=== PATIENT | female | born 1995 | race African-American/Black ===

== ENCOUNTER 2019-02-12 12:24 | Inpatient (IN) | payer MEDICAID ==
[~2019-02-12] VITALS: Ht 170.2 cm; Wt 68.5 kg
[2019-02-12] MEDS ORDERED: MISOPROSTOL 100MCG TABLET VG SCH (12:45)
[2019-02-12] MEDS ORDERED: METHYLERGONOVINE MALEATE 0.2 MG/ML IM PRN ×2 (12:45→13:00)
[2019-02-12] MEDS ORDERED: CARBOPROST TROMETHAMINE 250 MCG/ML AMPUL IM PRN (12:45)
[2019-02-12] MEDS ORDERED: NALOXONE HCL 0.4 MG/ML 1ML VIAL IM PRN (12:45)
[2019-02-12] MEDS ORDERED: DEXT 5%/LR + PITOCIN 20UNITS/L 1,000 ML IV SCH ×2 (13:00)
[2019-02-12] MEDS ORDERED: LACTATED RINGERS 1,000 ML IV SCH (13:00)
[2019-02-12] MEDS ORDERED: IBUPROFEN 800MG TABLET PO ONE (13:00)
[2019-02-12] MEDS ORDERED: RHO(D) IMMUNE GLOBULIN 300 MCG/SYR IM PRN (13:00)
[2019-02-12] MEDS ORDERED: LANOLIN OINT 0.25 GM TUBE TOP PRN (13:00)
[2019-02-12 15:00] VITALS: BP 115/83
[2019-02-12 15:30] VITALS: BP 112/65
[2019-02-12 16:26] LABS: INR 0.9; PARTIAL THROMBOPLASTIN TIME 26.8 sec (23.4-31.0); PROTHROMBIN TIME 9.1 sec (9.6-11.0)
[2019-02-12 16:30] LABS: BASOPHILS % 0.5 % (0.0-2.0); EOSINOPHILS % 0.3 % (0.0-5.0); HEMATOCRIT. 30.9 % (36.0-48.0); HEMOGLOBIN. 9.5 g/dL (12.0-16.0); LYMPHOCYTES % 22.1 % (20.0-50.0); MEAN CORPUSCULAR VOLUME 74.7 fL (81.0-99.0); MONOCYTES % 6.1 % (2.0-8.0); PLATELET 240 x1000/uL (130-400); RED BLOOD CELL COUNT 4.14 mill/uL (4.2-5.4); RED CELL DISTRIBUTION WIDTH 15.3 % (11.6-14.6)
[2019-02-12 17:01] LABS: HEPATITIS B SURFACE ANTIGEN NEGATIVE
[2019-02-12] MEDS: IBUPROFEN 400MG TABLET PO PRN (17:38)
[2019-02-12 20:00] VITALS: BP 98/61
[2019-02-12] MEDS: IBUPROFEN 800MG TABLET PO PRN (21:00)
[2019-02-12 21:27] LABS: CLARITY URINE CLEAR (CLEAR); COLOR URINE YELLOW (YELLOW); KETONES URINE NEGATIVE (NEGATIVE); LEUKOCYTE ESTERASE URINE NEGATIVE (NEGATIVE); NITRITE URINE NEGATIVE (NEGATIVE); OCCULT BLOOD URINE NEGATIVE (NEGATIVE); PH URINE 7.5 (4.5-8.0); PROTEIN URINE NEGATIVE (NEGATIVE); UROBILINOGEN URINE 0.2 E.U./dL (0.2-1.0)
[2019-02-12 21:37] LABS: *BARBITURATES SCREEN URINE NEGATIVE (NEGATIVE)
[2019-02-12 21:38] LABS: *BENZODIAZEPINES SCREEN URINE NEGATIVE (NEGATIVE); *COCAINE SCREEN URINE NEGATIVE (NEGATIVE); METHADONE URINE SCREEN NEGATIVE (NEGATIVE); OPIATES URINE SCREEN NEGATIVE (NEGATIVE); PHENCYCLIDINE URINE SCREEN NEGATIVE (NEGATIVE)
[2019-02-12 21:39] LABS: CANNABINOID URINE SCREEN NEGATIVE (NEGATIVE)
[2019-02-12 21:53] LABS: *AMPHETAMINES SCREEN URINE PRESUMTIVE POSITIVE (NEGATIVE)
[2019-02-13] MEDS: IBUPROFEN 400MG TABLET PO PRN (01:16)
[2019-02-13 04:00] VITALS: BP 123/73
[2019-02-13] MEDS: IBUPROFEN 800MG TABLET PO PRN ×3 (04:20→16:34)
[2019-02-13] MEDS ORDERED: PRENATAL VIT/FE FUMARATE/FA TABLET PO SCH (09:00)
[2019-02-13 16:59] VITALS: BP 117/70
[2019-02-13 20:00] VITALS: BP 140/67
[2019-02-14] MEDS: IBUPROFEN 800MG TABLET PO PRN ×2 (00:27→09:06)
[2019-02-14 04:00] VITALS: BP 140/67
[2019-02-14 08:00] VITALS: BP 117/64
[2019-02-18 09:08] LABS: AMPHETAMINE CONF URINE Positive (.)
== END 2019-02-14 17:00 | disposition home or self-care (01) | DRG 560 ==
LOC: L&D 12:24 → EDBD 12:24 → OBSVTOIN 12:24 → 8 EST LDRP 12:52 → 8EST NSY 14:45 → 8EST 17:05
PROVIDERS: ADMIT Obstetrics & Gynecology; ATTEND Obstetrics & Gynecology
PROC: 10E0XZZ Delivery of Products of Conception, External Approach (ICD-10-PCS; principal; 2019-02-12)
DX: O48.0 Post-term pregnancy (principal); Z37.0 Single live birth; Z3A.40 40 weeks gestation of pregnancy
CPT/HCPCS: 36415; 80305; 80307; 86592; 86703; 86762; 86850; 86900; 87340; 99281; G0378; J2590; J7120